=== PATIENT | male | born 2000 | race Hispanic/Latino ===

== ENCOUNTER 2022-05-08 03:53 | Emergency (ER) | payer OTHER ==
[~2022-05-08] VITALS: Ht 190.5 cm; Wt 98.2 kg
[2022-05-08] MEDS ORDERED: KETOROLAC 30 MG/ML 1ML VIAL IM ONE (06:45)
[2022-05-08] MEDS ORDERED: MORPHINE 2 MG/ML 1ML VIAL IM ONE (09:25)
[2022-05-08] MEDS ORDERED: PERC5TAB12 PO (10:29)
[2022-05-08 10:55] VITALS: BP 130/58
== END 2022-05-08 10:58 | disposition home or self-care (01) ==
LOC: M ED 03:53
DX: S52.121A Displaced fracture of head of right radius, initial encounter for closed fracture (principal); S52.611A Displaced fracture of right ulna styloid process, initial encounter for closed fracture; W01.0XXA Fall on same level from slipping, tripping and stumbling without subsequent striking against object, initial encounter; F10.10 Alcohol abuse, uncomplicated; Y92.410 Unspecified street and highway as the place of occurrence of the external cause; Y93.9 Activity, unspecified; Z79.899 Other long term (current) drug therapy; Y99.0 Civilian activity done for income or pay
CPT/HCPCS: 73090; 73110; 73200; 82077; 96372; 99284; J1885; J2270

== ENCOUNTER 2022-05-18 08:31 | Day surgery (SDC) | payer OTHER ==
[~2022-05-18] VITALS: Ht 190.5 cm; Wt 98.0 kg
[~2022-05-18 08:31] MED LIST: PERC5TAB12 PO
[2022-05-18] MEDS ORDERED: dexameTHASONE 10MG/1ML VIAL PRES.FREE (J1100 PER 1MG) PN ONE (08:55)
[2022-05-18] MEDS ORDERED: LIDOCAINE 1% SDV 5ML VIAL PN ONE (08:55)
[2022-05-18] MEDS ORDERED: EPINEPHrine INJ 1 MG/ML 1ML AMP PN ONE (08:55)
[2022-05-18] MEDS ORDERED: MIDAZOLAM INJ 2MG/2ML VIAL (J2250 PER 1MG) IV PRN (08:55)
[2022-05-18] MEDS ORDERED: fentaNYL 100 MCG/2 ML INJECTION IV PRN (08:55)
[2022-05-18] MEDS ORDERED: ROPIvacaine 0.5% 30ML INJECTION (J2795 PER 1MG) PN ONE (08:55)
[2022-05-18] MEDS ORDERED: LR 1,000 ML IV SCH ×2 (09:00→13:10)
[2022-05-18] MEDS ORDERED: ceFAZolin 2 GM/D5W 50 ML IV BAG (J0690 PER 500MG) As Ordered ONE (09:08)
[2022-05-18] MEDS ORDERED: ceFAZolin SOD 2 GM in IV 1 EA IV ONE (09:35)
[2022-05-18] MEDS ORDERED: BACITRACIN OINTMENT 30GM TUBE As Ordered ONE (09:39)
[2022-05-18] MEDS ORDERED: BUPIVACAINE HCL 0.25% 30ML VIAL As Ordered ONE (09:39)
[2022-05-18] MEDS ORDERED: HYDROmorphone HCL 2MG/ML 1ML VIAL As Ordered ONE (12:08)
[2022-05-18] MEDS ORDERED: ACETAMINOPHEN 1000MG 100ML IV BTL (OFIRMEV) (J0131 PER 10MG) As Ordered ONE (12:08)
[2022-05-18] MEDS ORDERED: fentaNYL 100 MCG/2 ML INJECTION As Ordered ONE (12:08)
[2022-05-18] MEDS ORDERED: propofoL 200 MG/20 ML VIAL As Ordered ONE (12:08)
[2022-05-18] MEDS ORDERED: KETOROLAC 60MG 2ML VIAL As Ordered ONE (12:08)
[2022-05-18] MEDS ORDERED: LIDOCAINE 2% 100MG/5ML SDV (FOR ANES.) As Ordered ONE (12:08)
[2022-05-18] MEDS ORDERED: LABETALOL 100MG/20ML VIAL As Ordered ONE (12:08)
[2022-05-18] MEDS ORDERED: MIDAZOLAM INJ 2MG/2ML VIAL (J2250 PER 1MG) As Ordered ONE (12:08)
[2022-05-18] MEDS ORDERED: ONDANSETRON 4MG 2ML VIAL As Ordered ONE (12:08)
[2022-05-18] MEDS ORDERED: dexameTHASONE 4 MG/ML 1ML VIAL (J1100 PER 1MG) As Ordered ONE (12:08)
[2022-05-18] MEDS ORDERED: METOCLOPRAMIDE INJ 10MG/2ML VIAL (J2765 PER 1) IV PRN (13:10)
[2022-05-18] MEDS ORDERED: ONDANSETRON 4MG 2ML VIAL IV PRN (13:10)
[2022-05-18] MEDS: fentaNYL 100 MCG/2 ML INJECTION IV PRN ×4 (13:35→13:57)
[2022-05-18] MEDS: oxyCODONE 5MG TAB PO PRN ×2 (13:39→14:11)
[2022-05-18] MEDS: MORPHINE 2 MG/ML 1ML VIAL IV PRN ×4 (14:10→14:27)
[2022-05-18 15:20] VITALS: BP 193/93
== END 2022-05-18 15:25 | disposition home or self-care (01) ==
LOC: M SDC 08:31
PROVIDERS: ATTEND Orthopaedic Surgery Hand Surgery
DX: S52.531A Colles' fracture of right radius, initial encounter for closed fracture (principal); X58.XXXA Exposure to other specified factors, initial encounter; Y92.89 Other specified places as the place of occurrence of the external cause; Y93.9 Activity, unspecified
CPT/HCPCS: 25608; 64418; 76000; 87635; C1713; C1762; C1773; J0131; J0171; J0690; J1100; J1170; J1885; J2250; J2270; J2405; J2795; J3010

== ENCOUNTER → 2022-05-28 | Outpatient (CLI) | payer OTHER | LOC: M SOG 08:55 | PROVIDERS: ATTEND Orthopaedic Surgery Hand Surgery | DX: Z47.89 Encounter for other orthopedic aftercare (principal) ==

== ENCOUNTER → 2022-06-29 | Outpatient (CLI) | payer OTHER | LOC: M SOG 11:26 | PROVIDERS: ATTEND Physician Assistant | DX: S52.571D Other intraarticular fracture of lower end of right radius, subsequent encounter for closed fracture with routine healing (principal) ==

== ENCOUNTER → 2022-08-14 | Outpatient (CLI) | payer OTHER | LOC: M SOG 09:05 | PROVIDERS: ATTEND Physician Assistant | DX: S52.571D Other intraarticular fracture of lower end of right radius, subsequent encounter for closed fracture with routine healing (principal) ==